=== PATIENT | female | born 1980 | race Hispanic/Latino ===

== ENCOUNTER 2024-04-03 10:26 | Inpatient (IN) | payer BC, OTHER ==
[2024-04-03] VITALS (29 sets, daily range): BP systolic 125–156; BP diastolic 59–81; PULSE 75–150; RESP 16–35; TEMP 97.6–100; O2SAT 98–100
[~2024-04-03] VITALS: Ht 157.5 cm; Wt 63.0 kg
[~2024-04-03 10:26] MED LIST: PIOGLITAZONE HC30 MG PO; PROGESTERONE100 MG PO; VITAMIN D5000 UNIT PO
[2024-04-03 11:25] LABS: ABG PCO2 13 mmHg (35-45); ABG PH 7.14 (7.35-7.45)
[2024-04-03 11:26] LABS: ABG HCO3 5 mmol/L (22-26); ABG PO2 110 mmHg (80-105); ABG TCO2 5
[2024-04-03] MEDS ORDERED: MAGNESIUM SULF 1GRAM/DEXTROSE 100 ML IV PRN (11:45)
[2024-04-03] MEDS: SODIUM CHLORIDE 0.9% 1000ML 1,000 ML IV SCH (11:45)
[2024-04-03 12:01] LABS: BASOPHILS % 0.2 % (0.0-1.0); HEMOGLOBIN 15.2 g/dL (12.0-16.0); LYMPHOCYTES # (AUTO) 0.6 (1.0-3.2); LYMPHOCYTES % 4.6 % (18.0-39.1); MEAN CORPUSCULAR HEMOGLOBIN 28.2 pg (28-32); MEAN CORPUSCULAR VOLUME 90.9 fL (81-99); MONOCYTES # (AUTO) 0.5 (0.2-0.8); MONOCYTES % 3.7 % (4.4-11.3); NEUTROPHILS # (AUTO) 12.1 (2.1-6.9); PLATELET COUNT 458 x10e3/uL (140-360); RED BLOOD COUNT 5.39 x10e6/uL (3.6-5.1); WHITE BLOOD COUNT 13.24 x10e3/uL (4.8-10.8)
[2024-04-03 12:11] LABS: STREPTOCOCCUS GRP A ANTIGEN NEGATIVE (NEGATIVE)
[2024-04-03 12:13] LABS: INR 1.03; PARTIAL THROMBOPLASTIN TIME 23.4 seconds (23.8-35.5); PROTHROMBIN TIME 14.1 seconds (11.9-14.5)
[2024-04-03 12:24] LABS: ALANINE AMINOTRANSFERASE 18 IU/L (0-55); ALBUMIN 4.3 g/dL (3.5-5.0); ALKALINE PHOSPHATASE 78 IU/L (40-150); ANION GAP 27.5 mmol/L (8-16); BILIRUBIN,TOTAL 0.6 mg/dL (0.2-1.2); BLOOD UREA NITROGEN 37 mg/dL (7-26); BUN/CREATININE RATIO 22 (6-25); CALCIUM 9.6 mg/dL (8.4-10.2); CHLORIDE 110 mmol/L (98-107); CORONAVIRUS COVID-19 AG NEGATIVE (NEGATIVE); CREATININE, SERUM 1.71 mg/dL (0.57-1.11); EST GLOMERULAR FILTRATION RATE 37 ML/MIN (>=60); GLUCOSE 372 mg/dL (74-118); INFLUENZA A AG NEGATIVE (NEGATIVE); INFLUENZA B AG NEGATIVE (NEGATIVE); POTASSIUM 4.5 mmol/L (3.5-5.1); SODIUM 140 mmol/L (136-145); TOTAL PROTEIN 8.6 g/dL (6.5-8.1)
[2024-04-03 12:33] LABS: LYMPHOCYTES % (MANUAL) 5 % (19-48); MONOCYTES % (MANUAL) 1 % (3.4-9.0); NEUTROPHILS % (MANUAL) 94 % (40-74); PLATELET ESTIMATE ADEQUATE; PLATELET MORPHOLOGY COMMENT NORMAL; RBC MORPHOLOGY COMMENT NORMAL
[2024-04-03 12:36] LABS: CARBON DIOXIDE 7 mmol/L (22-29)
[2024-04-03 14:14] LABS: CLARITY,URINE HAZY (CLEAR); COLOR,URINE YELLOW (YELLOW); GLUCOSE, URINE 500 (NEGATIVE); LEUKOCYTE ESTERASE ,URINE NEGATIVE (NEGATIVE); NITRITE,URINE NEGATIVE (NEGATIVE); PH,URINE 5.5 (5 - 7); PROTEIN,URINE DIPSTICK 1+ (NEGATIVE)
[2024-04-03 14:15] LABS: BACTERIA,URINE FEW /HPF; BILIRUBIN,URINE NEGATIVE (NEGATIVE); EPITHELIAL CELLS,URINE FEW /LPF; KETONES,URINE >=160 (NEGATIVE); RBC,URINE 0-5 /HPF (0-5); URINE UROBILINOGEN 0.2 mg/dL (0.2 - 1); WBC,URINE (MAN) 0-5 /HPF (0-5)
[2024-04-03 14:16] LABS: AMPHETAMINES SCREEN,URINE NEGATIVE (NEGATIVE); BENZODIAZEPINES SCREEN,URINE NEGATIVE (NEGATIVE); CANNABINOIDS SCREEN,URINE NEGATIVE (NEGATIVE); COCAINE SCREEN,URINE NEGATIVE (NEGATIVE); METHADONE SCREEN, URINE NEGATIVE (NEGATIVE); OPIATES SCREEN,URINE NEGATIVE (NEGATIVE); PHENCYCLIDINE SCREEN,URINE NEGATIVE (NEGATIVE)
[2024-04-03] MEDS: INSULIN REGULAR, HUMAN 100 UNIT/1 ML IV ONE (14:19)
[2024-04-03] MEDS ORDERED: SODIUM CHLORIDE 0.9% 100 ML ONE (14:20)
[2024-04-03] MEDS: ONDANSETRON HCL INJ 2MG/ML 2ML 2 MG/ML VIAL IV PRN (14:20)
[2024-04-03] MEDS: SODIUM CHLORIDE 0.9% 1000ML 1,000 ML IV STA ×3 (14:23→14:24)
[2024-04-03] MEDS: CEFTRIAXONE 2 GM in SODIUM CHLORIDE 0.9% 100 ML IV ONE (14:23)
[2024-04-03] MEDS: DEXTROSE 5%/0.45% SOD CHL 1,000 ML IV SCH (14:40)
[2024-04-03] MEDS: INSULIN REGULAR, HUMAN 3ML VL 100 UNIT in SODIUM CHLORIDE 0.9% 99 ML IV SCH (14:43)
[2024-04-03] MEDS: ONDANSETRON HCL INJ 2MG/ML 2ML 2 MG/ML VIAL IV STA (14:46)
[2024-04-03 15:36] LABS: ABG HCO3 5 mmol/L (22-26); ABG PCO2 13 mmHg (35-45); ABG PH 7.14 (7.35-7.45); ABG PO2 120 mmHg (80-105); ABG TCO2 < 5
[2024-04-03 16:28] LABS: ANION GAP 19.9 mmol/L (8-16); CALCIUM 7.9 mg/dL (8.4-10.2); CREATININE, SERUM 1.17 mg/dL (0.57-1.11); MAGNESIUM 2.1 MG/DL (1.3-2.1); POTASSIUM 3.9 mmol/L (3.5-5.1)
[2024-04-03 21:20] LABS: CREATINE KINASE 47 IU/L (29-168)
[2024-04-03 21:21] LABS: ANION GAP 12.3 mmol/L (8-16); CALCIUM 7.5 mg/dL (8.4-10.2)
[2024-04-03 21:31] LABS: POTASSIUM 3.3 mmol/L (3.5-5.1); TROPONIN I < 0.001 ng/mL (0-0.300)
[2024-04-04] VITALS (38 sets, daily range): BP systolic 127–161; BP diastolic 68–84; PULSE 100–130; RESP 15–23; TEMP 98.7–99.8; O2SAT 100
[2024-04-04 01:08] LABS: TROPONIN I 0.002 ng/mL (0-0.300)
[2024-04-04 05:12] LABS: BASOPHILS % 0.1 % (0.0-1.0); EOSINOPHILS % 0.1 % (0.0-6.0); HEMATOCRIT 35.8 % (34.2-44.1); HEMOGLOBIN 11.6 g/dL (12.0-16.0); LYMPHOCYTES % 14.1 % (18.0-39.1); MEAN CORPUSCULAR HEMOGLOBIN 28.6 pg (28-32); MEAN CORPUSCULAR HGB CONC 32.4 g/dL (31-35); MEAN CORPUSCULAR VOLUME 88.2 fL (81-99); MONOCYTES # (AUTO) 0.5 (0.2-0.8); MONOCYTES % 6.9 % (4.4-11.3); NEUTROPHILS # (AUTO) 5.5 (2.1-6.9); NEUTROPHILS % 78.4 % (38.7-80.0); PLATELET COUNT 272 x10e3/uL (140-360); RED BLOOD COUNT 4.06 x10e6/uL (3.6-5.1); RED CELL DISTRIBUTION WIDTH 14.1 % (11.7-14.4); WHITE BLOOD COUNT 6.97 x10e3/uL (4.8-10.8)
[2024-04-04 05:16] LABS: ANION GAP 14.5 mmol/L (8-16); CALCIUM 7.8 mg/dL (8.4-10.2); CREATININE, SERUM 0.97 mg/dL (0.57-1.11); MAGNESIUM 2.1 MG/DL (1.3-2.1); POTASSIUM 3.5 mmol/L (3.5-5.1)
[2024-04-04 05:50] LABS: ANION GAP 11.1 mmol/L (8-16); CALCIUM 7.9 mg/dL (8.4-10.2); CREATININE, SERUM 0.88 mg/dL (0.57-1.11); MAGNESIUM 2.2 MG/DL (1.3-2.1)
[2024-04-04 05:56] LABS: POTASSIUM 3.1 mmol/L (3.5-5.1)
[2024-04-04 06:01] LABS: TROPONIN I 0.005 ng/mL (0-0.300)
[2024-04-04 09:37] LABS: CALCIUM 7.9 mg/dL (8.4-10.2); CREATININE, SERUM 0.82 mg/dL (0.57-1.11); MAGNESIUM 2.2 MG/DL (1.3-2.1)
[2024-04-04] MEDS: POTASSIUM CHLORIDE 20MEQ/100ML 200 ML IV PRN (10:46)
[2024-04-04] MEDS: HYDROCODONE/APAP 5MG-325MG TAB PO PRN (12:11)
[2024-04-04 13:09] LABS: ANION GAP 9.3 mmol/L (8-16); CALCIUM 7.7 mg/dL (8.4-10.2); CREATININE, SERUM 0.77 mg/dL (0.57-1.11); MAGNESIUM 2.1 MG/DL (1.3-2.1)
[2024-04-04 13:11] LABS: POTASSIUM 3.3 mmol/L (3.5-5.1)
[2024-04-04 17:13] LABS: CALCIUM 7.5 mg/dL (8.4-10.2); CREATININE, SERUM 0.69 mg/dL (0.57-1.11)
[2024-04-04 21:17] LABS: ANION GAP 11.1 mmol/L (8-16); CALCIUM 7.5 mg/dL (8.4-10.2); CREATININE, SERUM 0.64 mg/dL (0.57-1.11); MAGNESIUM 2.1 MG/DL (1.3-2.1)
[2024-04-04 21:24] LABS: POTASSIUM 3.1 mmol/L (3.5-5.1)
[2024-04-05] VITALS (10 sets, daily range): BP systolic 112–156; BP diastolic 71–95; PULSE 99–112; RESP 15–21; TEMP 98.3–99.6; O2SAT 100
[2024-04-05 03:03] LABS: ANION GAP 10.6 mmol/L (8-16); CALCIUM 7.3 mg/dL (8.4-10.2); CREATININE, SERUM 0.57 mg/dL (0.57-1.11)
[2024-04-05 03:14] LABS: POTASSIUM 2.6 mmol/L (3.5-5.1)
[2024-04-05] MEDS: POTASSIUM CHLORIDE 20MEQ/100ML 200 ML ONE (05:11)
[2024-04-05 08:28] LABS: EOSINOPHILS % 0.3 % (0.0-6.0); HEMATOCRIT 37.9 % (34.2-44.1); HEMOGLOBIN 12.3 g/dL (12.0-16.0); LYMPHOCYTES # (AUTO) 0.9 (1.0-3.2); LYMPHOCYTES % 11.1 % (18.0-39.1); MEAN CORPUSCULAR HEMOGLOBIN 28.7 pg (28-32); MEAN CORPUSCULAR HGB CONC 32.5 g/dL (31-35); MEAN CORPUSCULAR VOLUME 88.3 fL (81-99); MONOCYTES # (AUTO) 0.9 (0.2-0.8); NEUTROPHILS # (AUTO) 6.1 (2.1-6.9); NEUTROPHILS % 77.2 % (38.7-80.0); PLATELET COUNT 223 x10e3/uL (140-360); RED BLOOD COUNT 4.29 x10e6/uL (3.6-5.1); RED CELL DISTRIBUTION WIDTH 13.4 % (11.7-14.4); WHITE BLOOD COUNT 7.83 x10e3/uL (4.8-10.8)
[2024-04-05] MEDS ORDERED: CEFTRIAXONE 1 GM VIAL ONE (08:30)
[2024-04-05 08:42] LABS: ANION GAP 12.5 mmol/L (8-16); BLOOD UREA NITROGEN < 5 mg/dL (7-26); CALCIUM 7.8 mg/dL (8.4-10.2); CARBON DIOXIDE 18 mmol/L (22-29); CHLORIDE 112 mmol/L (98-107); CREATININE, SERUM 0.59 mg/dL (0.57-1.11); EST GLOMERULAR FILTRATION RATE 113 ML/MIN (>=60); GLUCOSE 67 mg/dL (74-118); SODIUM 140 mmol/L (136-145)
[2024-04-05 08:43] LABS: BUN/CREATININE RATIO 8 (6-25)
[2024-04-05 08:45] LABS: POTASSIUM 2.5 mmol/L (3.5-5.1)
[2024-04-05] MEDS: POTASSIUM CHLORIDE 20MEQ/100ML 200 ML IV PRN (09:06)
[2024-04-05] MEDS ORDERED: DEXTROSE 50% SYRINGE 50 ML IV PRN (12:30)
[2024-04-05 13:09] LABS: ANION GAP 11.8 mmol/L (8-16); BLOOD UREA NITROGEN < 5 mg/dL (7-26); CALCIUM 7.7 mg/dL (8.4-10.2); CARBON DIOXIDE 18 mmol/L (22-29); CHLORIDE 113 mmol/L (98-107); CREATININE, SERUM 0.58 mg/dL (0.57-1.11); EST GLOMERULAR FILTRATION RATE 114 ML/MIN (>=60); GLUCOSE 91 mg/dL (74-118); MAGNESIUM 1.8 MG/DL (1.3-2.1); SODIUM 140 mmol/L (136-145)
[2024-04-05 13:12] LABS: POTASSIUM 2.8 mmol/L (3.5-5.1)
[2024-04-05 13:13] LABS: BUN/CREATININE RATIO 9 (6-25)
[2024-04-05] MEDS: POTASSIUM CHLORIDE 10MEQ EA PO ONE (13:40)
[2024-04-05] MEDS: INSULIN REGULAR, HUMAN 100 UNIT/1 ML SQ SCH (16:30)
[2024-04-05] MEDS: INSULIN GLARGINE 100 UNITS/ML VIAL SQ SCH (21:19)
[2024-04-06] VITALS: BP 125/85; PULSE 96; RESP 17; TEMP 98.3; O2SAT 100
[2024-04-06 07:26] VITALS: BP 130/83; PULSE 96; RESP 16; TEMP 98.6; O2SAT 100
[2024-04-06 09:00] VITALS: BP 130/83; PULSE 96; RESP 16; TEMP 98.6; O2SAT 100
[2024-04-06] MEDS ORDERED: JANUVIA100 MG PO (10:02)
[2024-04-06] MEDS ORDERED: ONDANSETRON HCL 4 MG ORAL DISINTEGRATING TAB PO PRN (10:30)
== END 2024-04-06 12:35 | disposition home or self-care (01) | DRG 638 ==
LOC: ER 11:05 → ERHOLD 12:37 → ICU 14:27 → MED/SURG 04-05 14:45
PROVIDERS: ADMIT Internal Medicine; ATTEND Internal Medicine
PROC: 4A133R1 Monitoring of Arterial Saturation, Peripheral, Percutaneous Approach (ICD-10-PCS; principal; 2024-04-03)
DX: E11.10 Type 2 diabetes mellitus with ketoacidosis without coma (principal); N17.9 Acute kidney failure, unspecified; E86.0 Dehydration; E11.65 Type 2 diabetes mellitus with hyperglycemia; D72.829 Elevated white blood cell count, unspecified; R00.0 Tachycardia, unspecified; R53.81 Other malaise; T38.3X6A Underdosing of insulin and oral hypoglycemic [antidiabetic] drugs, initial encounter; Z91.128 Patient's intentional underdosing of medication regimen for other reason; Z79.4 Long term (current) use of insulin; Z11.52 Encounter for screening for COVID-19; Z79.84 Long term (current) use of oral hypoglycemic drugs
CPT/HCPCS: 36415; 36600; 51700; 71045; 80048; 80053; 80307; 81001; 82550; 82805; 82948; 83036; 83518; 83605; 83735; 84443; 84484; 84702; 85025; 85610; 85730; 87040; 87070; 87086; 93005; 94799; 99285; J0696; J2405; J3480; J7030; J7050

== ENCOUNTER 2024-05-03 15:33 | Emergency (ER) | payer BC ==
[~2024-05-03] VITALS: Ht 157.5 cm; Wt 63.0 kg
[~2024-05-03 15:33] MED LIST changes: +JANUVIA100 MG PO
[2024-05-03 15:59] VITALS: TEMP 98
[2024-05-03 16:27] LABS: BASOPHILS % 0.2 % (0.0-1.0); EOSINOPHILS % 0.3 % (0.0-6.0); HEMATOCRIT 41.8 % (34.2-44.1); HEMOGLOBIN 13.9 g/dL (12.0-16.0); LYMPHOCYTES # (AUTO) 0.7 (1.0-3.2); LYMPHOCYTES % 7.3 % (18.0-39.1); MEAN CORPUSCULAR HEMOGLOBIN 28.3 pg (28-32); MEAN CORPUSCULAR HGB CONC 33.3 g/dL (31-35); MONOCYTES # (AUTO) 0.3 (0.2-0.8); MONOCYTES % 2.9 % (4.4-11.3); NEUTROPHILS # (AUTO) 8.8 (2.1-6.9); NEUTROPHILS % 89.1 % (38.7-80.0); PLATELET COUNT 319 x10e3/uL (140-360); RED BLOOD COUNT 4.92 x10e6/uL (3.6-5.1); RED CELL DISTRIBUTION WIDTH 13.2 % (11.7-14.4); WHITE BLOOD COUNT 9.87 x10e3/uL (4.8-10.8)
[2024-05-03] MEDS: Morphine 4mg INJECTION 4 MG/ML INJ IV STA (16:33)
[2024-05-03] MEDS: SODIUM CHLORIDE 0.9% 1000ML 1,000 ML IV STA (16:33)
[2024-05-03] MEDS: ONDANSETRON HCL INJ 2MG/ML 2ML 2 MG/ML VIAL IV STA (16:34)
[2024-05-03] MEDS: KETOROLAC TROMETHAMINE 30 MG/ML VIAL IV STA (16:34)
[2024-05-03 16:35] LABS: INR 0.92; PROTHROMBIN TIME 12.9 seconds (11.9-14.5)
[2024-05-03 16:36] LABS: PARTIAL THROMBOPLASTIN TIME 25.9 seconds (23.8-35.5)
[2024-05-03 16:45] LABS: ALANINE AMINOTRANSFERASE 14 IU/L (0-55); ALBUMIN 3.8 g/dL (3.5-5.0); ALBUMIN/GLOBULIN RATIO 0.9 (0.8-2.0); ALKALINE PHOSPHATASE 62 IU/L (40-150); ANION GAP 18.1 mmol/L (8-16); BILIRUBIN,TOTAL 0.7 mg/dL (0.2-1.2); BLOOD UREA NITROGEN 12 mg/dL (7-26); BUN/CREATININE RATIO 14 (6-25); CALCIUM 9.3 mg/dL (8.4-10.2); CARBON DIOXIDE 18 mmol/L (22-29); CHLORIDE 109 mmol/L (98-107); CREATININE, SERUM 0.87 mg/dL (0.57-1.11); EST GLOMERULAR FILTRATION RATE 84 ML/MIN (>=60); GLUCOSE 183 mg/dL (74-118); LIPASE 31 U/L (8-78); MAGNESIUM 1.8 MG/DL (1.3-2.1); POTASSIUM 4.1 mmol/L (3.5-5.1); SODIUM 141 mmol/L (136-145); TOTAL PROTEIN 7.9 g/dL (6.5-8.1)
[2024-05-03 18:22] LABS: CLARITY,URINE CLEAR (CLEAR); COLOR,URINE YELLOW (YELLOW); LEUKOCYTE ESTERASE ,URINE NEGATIVE (NEGATIVE); PH,URINE 5.5 (5 - 7)
[2024-05-03 18:23] LABS: BACTERIA,URINE FEW /HPF; BILIRUBIN,URINE NEGATIVE (NEGATIVE); EPITHELIAL CELLS,URINE MODERATE /LPF; GLUCOSE, URINE 2+ (NEGATIVE); KETONES,URINE 2+ (NEGATIVE); MUCUS,URINE MODERATE; NITRITE,URINE NEGATIVE (NEGATIVE); PROTEIN,URINE DIPSTICK 1+ (NEGATIVE); RBC,URINE 0-5 /HPF (0-5); URINE UROBILINOGEN 0.2 mg/dL (0.2 - 1); WBC,URINE (MAN) 0-5 /HPF (0-5)
[2024-05-03] MEDS ORDERED: FLOMAX0.4 MG PO (19:10)
[2024-05-03] MEDS ORDERED: ONDANSETRON ODT4 MG PO (19:10)
[2024-05-03] MEDS ORDERED: HYDROCODON-ACE1 EA11 PO (19:10)
[2024-05-03 19:18] VITALS: PULSE 100; RESP 17
[2024-05-03 19:26] VITALS: BP 135/90; O2SAT 100
== END 2024-05-03 19:28 | disposition home or self-care (01) ==
LOC: ER 16:06
DX: R10.31 Right lower quadrant pain (principal); N13.2 Hydronephrosis with renal and ureteral calculous obstruction; K80.20 Calculus of gallbladder without cholecystitis without obstruction; R10.2 Pelvic and perineal pain; R11.2 Nausea with vomiting, unspecified; E11.65 Type 2 diabetes mellitus with hyperglycemia
CPT/HCPCS: 36415; 74176; 80053; 81001; 83690; 83735; 84702; 85025; 85610; 85730; 99284; J1885; J2270; J2405; J7030